=== PATIENT | female | born 1990 ===

== ENCOUNTER 2022-09-10 10:00 | Inpatient (IN) | payer OTHER ==
[~2022-09-10] VITALS: Ht 170.2 cm; Wt 133.8 kg
[2022-09-14] MEDS ORDERED: Tylenol #3 PO (09:07)
[2022-09-14] MEDS ORDERED: NAPR500T14 PO (09:07)
== END 2022-09-14 12:38 | disposition home or self-care (01) | DRG 743 ==
LOC: SURH 09-13 07:00 → OB/GYN 09-13 07:01 → O/R 09-13 07:01 → SURH 09-13 08:15 → EDBD 09-13 08:15 → OB/GYN 09-13 11:33
PROVIDERS: ADMIT Obstetrics & Gynecology; ATTEND Obstetrics & Gynecology
PROC: 0UT7FZZ Resection of Bilateral Fallopian Tubes, Via Natural or Artificial Opening With Percutaneous Endoscopic Assistance (ICD-10-PCS; 2022-09-13)
PROC: 0USG4ZZ Reposition Vagina, Percutaneous Endoscopic Approach (ICD-10-PCS; 2022-09-13)
PROC: 0JQC3ZZ Repair Pelvic Region Subcutaneous Tissue and Fascia, Percutaneous Approach (ICD-10-PCS; 2022-09-13)
PROC: 0TJB8ZZ Inspection of Bladder, Via Natural or Artificial Opening Endoscopic (ICD-10-PCS; 2022-09-13)
PROC: 0UT9FZZ Resection of Uterus, Via Natural or Artificial Opening With Percutaneous Endoscopic Assistance (ICD-10-PCS; principal; 2022-09-13 07:00)
DX: D25.1 Intramural leiomyoma of uterus (principal); N81.11 Cystocele, midline; Z20.822 Contact with and (suspected) exposure to COVID-19